=== PATIENT | female | born 1975 | race Caucasian/White ===

== ENCOUNTER 2020-05-07 08:37 | Outpatient (CLI) | payer BC, SELFPAY ==
--- NOTE | ~2020-05-07 | US_ITS ---
EXAMINATION: US right upper quadrant EXAM DATE: 05/07/2020 09:18 INDICATION: Abdomin pain . TECHNIQUE: Multiple grayscale and Doppler images of the abdomen right upper quadrant were obtained (b y a technologist who performed the scan) and subsequently reviewed. Comparison is made to prior exami nation from 03/07/2017. FINDINGS: The pancreatic head and body are normal in appearance. The pancreatic tail is not visualized. The l iver has normal echogenicity and contour. There are no focal liver lesions identified. There is no evidence of intrahepatic biliary duct dilation. Portal venous flow was seen in the hepatopedal, nor mal direction and has normal Doppler waveform. No right-sided hydronephrosis. Common bile duct measures 7 mm, which is mildly dilated (normal for this age 6 mm or less). The gallb ladder wall is normal in thickness, with expected amount of distention. No sonographic evidence of p ericholecystic fluid. There are numerous gallstones. Technologist performing exam reports patient d id not demonstrate sonographic Wadsworth's sign. Please note that this sign is less reliable in patient s who have received pain medication. IMPRESSION: 1. Numerous gallstones within an otherwise unremarkable gallbladder. 2. Mildly dilated common bile duct. No intrahepatic duct dilation. If patient has elevated bilirubin consider MRCP. Reviewed, dictated and finalized at location A. [employer]ING CARE MANAGER
[2020-05-07 08:54] LABS: Hematocrit 35.1 % (35.0-49.0); Hemoglobin 11.2 g/dL (12.0-15.0); Mean Corpuscular HGB Conc 31.9 g/dL (32.0-36.0); Mean Corpuscular Hemoglobin 25.4 pg (27.0-31.0); Mean Corpuscular Volume 79.6 fL (78.0-102.0); Mean Platelet Volume 10.8 fl (9.2-11.8); Platelet Count Result 156 K/mm3 (150-420); Red Blood Count 4.41 M/mm3 (4.20-5.40); White Blood Count 3.9 K/mm3 (4.8-10.8)
[2020-05-07 09:26] LABS: Total Cells Counted 100
[2020-05-07 09:27] LABS: Band Neutrophils Percent 0 % (0-6); Basophils Absolute Manual 0.07 K/mm3 (0-0.1); Basophils Percent Manual 2 % (0-1); Eosinophils Absolute Manual 0.15 K/mm3 (0.02-0.5); Eosinophils Percent Manual 4 % (1-6); Lymphocytes Absolute Manual 1.59 K/mm3 (1.1-4.5); Lymphocytes Percent Manual 41 % (18-44); Monocytes Absolute Manual 0.31 K/mm3 (0.1-0.90); Monocytes Percent Manual 8 % (3-9); Neutrophils Absolute Manual 1.75 K/mm3 (1.7-7.2); Neutrophils Percent Manual 45 % (46-73); Platelet Estimate Adequate (Adequate)
[2020-05-07 09:37] LABS: Alanine Aminotransferase 23 U/L (14-59); Albumin Level 3.7 g/dL (3.4-5.0); Alkaline Phosphatase 105 U/L (46-116); Amylase 51 U/L (25-115); Anion Gap 7 mmol/L (8-16); Aspartate Amino Transferase 24 U/L (15-37); Bilirubin,Total 0.5 mg/dL (0.00-1.00); Blood Urea Nitrogen 13 mg/dL (7-18); Carbon Dioxide 29 mmol/L (21-32); Chloride 104 mmol/L (98-108); Cholesterol 122 mg/dL (0-200); Estimated Glomerular Filt Rate > 60; Ferritin 103 ng/mL (8-252); Glucose 96 mg/dL (70-99); HDL Direct 51 mg/dL (40-60); LDL Cholesterol Calculated 57 mg/dL (<130); Lipase 111 U/L (73-393); Osmolality Calculated 290 mOsm/kg (285-295); Potassium 3.8 mmol/L (3.5-5.1); Sodium 140 mmol/L (136-145); Total Protein 6.6 g/dL (6.4-8.2); Triglycerides 72 mg/dL (0-150)
[2020-05-07 09:57] LABS: Thyroid Stimulating Hormone < 0.01 uIU/mL (0.36-3.74)
[2020-05-07 12:39] LABS: Free T3 7.86 pg/mL (2.18-3.98); Free T4 Free Thyroxine 2.25 ng/dL (0.76-1.46)
[2020-05-08 10:45] LABS: Add Urine Microscopic? YES; Appearance Urine Clear (Clear); Bilirubin Urine Negative (Negative); Blood Urine Negative (Negative); Color Urine Yellow (Yellow); Glucose Urine UA Negative (Negative); Ketones Urine Trace (Negative); Leukocyte Esterase Ur 2+ (Negative); Nitrate Urine Negative (Negative); Protein Urine Negative (Negative); Specific Grav Ur >= 1.030 (1.010-1.020); Urobilinogen Urine 0.2 mg/dL (0.2-1.0)
[2020-05-08 10:56] LABS: RBC Urine 0-2 /hpf (0-2)
[2020-05-08 10:57] LABS: Bacteria Urine 4+ /hpf; Calcium Oxalate Crystals Urine Many /hpf; Squamous Epithelial Cell Urine Few /hpf (Few)
[2020-05-09 14:58] LABS: Parathyroid Intact 25 pg/mL (14-64)
[2020-05-10 08:47] LABS: Methylmalonic Acid 202 nmol/L (87-318)
[2020-05-12 13:28] LABS: Vitamin D 25 Hydroxy 24 ng/mL (30-100)
[2020-05-13 11:24] LABS: Vitamin A 40 mcg/dL (38-98)
== END 2020-05-07 08:38 | disposition home or self-care (01) ==
LOC: CHSIMG 08:41
PROVIDERS: PCP Internal Medicine; Visit Provider Internal Medicine
DX: Z00.00 Encounter for general adult medical examination without abnormal findings (principal); R10.9 Unspecified abdominal pain; Z98.84 Bariatric surgery status; N28.9 Disorder of kidney and ureter, unspecified; R94.6 Abnormal results of thyroid function studies
CPT/HCPCS: 36415; 76705; 80053; 80061; 81001; 82150; 82306; 82728; 83690; 83921; 83970; 84439; 84443; 84481; 84590; 85025

== ENCOUNTER 2020-05-08 10:27 | Outpatient (CLI) | payer BC, SELFPAY ==
[2020-05-08 10:46] LABS: Total Protein Urine 24 Hr 164 mg/24hr (0-149); Total Protein Urine Random 11.3 mg/dL (0.0-11.9)
[2020-05-08 10:53] LABS: Total Volume 24 Hour Urine 1450 ml
== END 2020-05-08 10:28 | disposition home or self-care (01) ==
LOC: CHSLAB 10:29
PROVIDERS: PCP Internal Medicine; Visit Provider Internal Medicine
DX: R10.9 Unspecified abdominal pain (principal); Z98.84 Bariatric surgery status; N28.9 Disorder of kidney and ureter, unspecified
CPT/HCPCS: 81050; 84156

== ENCOUNTER 2020-05-18 09:31 | Outpatient (CLI) | payer BC, SELFPAY ==
--- NOTE | ~2020-05-18 | US_ITS ---
EXAMINATION: US thyroid DATE: 05/18/2020 09:51 INDICATION: Hyperthyroidism. TECHNIQUE: Multiple ultrasound images of the thyroid were obtained. COMPARISON: Ultrasound 03/03/2016 FINDINGS: The right thyroid lobe measures 4.3 x 1.7 x 1.5 cm. The left thyroid lobe measures 4.0 x 1.1 x 1.4 c m. The thyroid demonstrates diffuse chronic heterogeneous echogenicity and increased vascularity. No discrete nodule. IMPRESSION: 1. Chronically heterogeneous and hypervascular thyroid, consistent with Graves' disease. Reviewed, dictated and finalized at location A. ESS IMPROVEMENT SPECIALIST
== END 2020-05-18 09:32 | disposition home or self-care (01) ==
LOC: CHSIMG 09:32
PROVIDERS: PCP Internal Medicine; Visit Provider Internal Medicine
DX: E05.90 Thyrotoxicosis, unspecified without thyrotoxic crisis or storm (principal)
CPT/HCPCS: 76536

== ENCOUNTER → 2020-05-22 03:06 | Outpatient (CLI) | payer BC, SELFPAY ==
[2020-05-22 18:10] LABS: SARS-CoV-2 RNA PCR Negative
== END ==
PROVIDERS: PCP Internal Medicine; Visit Provider Surgery
DX: Z01.812 Encounter for preprocedural laboratory examination (principal); Z20.822 Contact with and (suspected) exposure to COVID-19
CPT/HCPCS: C9803; U0003; U0005

== ENCOUNTER 2020-05-22 08:06 | Outpatient (CLI) | payer BC, SELFPAY | END 2020-05-22 08:07 | disposition home or self-care (01) | LOC: ANHSURGERY 08:11 | PROVIDERS: PCP Internal Medicine; Visit Provider Surgery | DX: Z01.818 Encounter for other preprocedural examination (principal); K80.20 Calculus of gallbladder without cholecystitis without obstruction | CPT/HCPCS: 36415; 86850; 86900; 86901 ==

== ENCOUNTER 2020-05-25 01:34 | Day surgery (SDC) | payer BC, SELFPAY ==
[2020-05-19 10:01] VITALS: BMI 25.8
[2020-05-25] VITALS (8 sets, daily range): BP systolic 105–162; BP diastolic 68–93; PULSE 59–86; RESP 12–20; TEMP 36.8–37.2; O2SAT 92–100
--- NOTE | 2020-05-25 08:12 | WPDANESEPPF ---
Anes - Initial Pre Proc Eval Procedure: Operation Date: 05/25/20 13:00 Proposed Procedures p Laparoscopic Cholecystectomy - Cindy Cervantes MD <Anuj Worley MD - Last Filed: 05/28/20 08:56> Date/Time: 05/25/20 08:12 <Anuj Worley MD - Last Filed: 05/28/20 08:56> Surgeon: Cindy Cervantes MD <Anuj Worley MD - Last Filed: 05/28/20 08:56> Pre Op Diagnosis: Symptomatic Cholelithiasis <Anuj Worley MD - Last Filed: 05/28/20 08:56> Patient Data Age: 44 Gender: F Height: 1.7 m Weight: 74.84 kg <Anuj Worley MD - Last Filed: 05/28/20 08:56> Allergies Allergy/AdvReac Type Severity Reaction Status Date / Time Sulfa (Sulfonamide Allergy Unknown Rash Verified 05/25/20 11:17 Antibiotics) <Anuj Worley MD - Last Filed: 05/28/20 08:56> Home Medications Medication Instructions Recorded Confirmed Type hydrocodone-acetaminophen 1 tablet PO Q6H PRN #20 tablet 05/25/20 Rx <Anuj Worley MD - Last Filed: 05/28/20 08:56> Patient hx anesthesia problems: none <Tavo Luciano MD - Last Filed: 05/25/20 11:57> Family hx anesthesia problems: none <Tavo Luciano MD - Last Filed: 05/25/20 11:57> [facility] Past Medical History Medical History: Medical History (Updated 05/18/20 @ 13:27 by Nataliya Ventura) Anxiety GERD (gastroesophageal reflux disease) High cholesterol History of asthma NAT (obstructive sleep apnea) <Anuj Worley MD - Last Filed: 05/28/20 08:56> Surgical History Surgical History: Surgical History History of bariatric surgery 2017 History of hysterectomy History of right salpingo-oophorectomy <Anuj Worley MD - Last Filed: 05/28/20 08:56> Family History Family History: Family History Mother , age 37 Breast cancer Other Family history of cardiovascular disease <Anuj Worley MD - Last Filed: 05/28/20 08:56> Social History Social History: Social History Smoking status: Never smoker Tobacco type: cigarettes Alcohol intake: current Alcohol use details: SOCIALLY Substance use: never Living arrangements: with family Additional occupation/education comments: [employer] Spiritual care concerns: No <Anuj Worley MD - Last Filed: 05/28/20 08:56> Anes - Eval Final PreProcedure Day of Procedure 05/25/20 08:12 <Anuj Worley MD - Last Filed: 05/28/20 08:56> Patient weight: overweight <Anuj Worley MD - Last Filed: 05/28/20 08:56> Heart: regular rate and rhythm <Anuj Worley MD - Last Filed: 05/28/20 08:56> Lungs: clear to auscultation and normal air movement <Anuj Worley MD - Last Filed: 05/28/20 08:56> Airway: Mallampati scale class II <Anuj Worley MD - Last Filed: 05/28/20 08:56> Neurological: alert and oriented <Anuj Worley MD - Last Filed: 05/28/20 08:56> Last oral intake: >/= 8 hours <Anuj Worley MD - Last Filed: 05/28/20 08:56> ASA classification: II <Anuj Worley MD - Last Filed: 05/28/20 08:56> Emergent: no <Anuj Worley MD - Last Filed: 05/28/20 08:56> Anesthetic plan: proceed <Anuj Worley MD - Last Filed: 05/28/20 08:56> Anesthesia type and monitoring: general ETT <Anuj Worley MD - Last Filed: 05/28/20 08:56> Informed Consent: The patient's anesthetic plan and its attendant risks and benefits were discussed with the patient/family/POA. Questions were solicited and answers provided to the satisfaction of the patient/family/POA. <Anuj Worley MD - Last Filed: 05/28/20 08:56>
[2020-05-25] MEDS: ACETAMINOPHEN 500 MG TABLET 1000 MG PO (11:29)
[2020-05-25] MEDS: LACTATED RINGERS 1,000 ML 30 ML IV CONT ×2 (11:32→13:12)
[2020-05-25] MEDS: KETOROLAC 15 MG/ML VIAL (*BKC) IV PUSH (11:38)
--- NOTE | 2020-05-25 12:00 | WPDHPUPDATE1 ---
History and Physical Update Update Date/Time: 05/25/20 12:00 History and Physical has been reviewed, including an updated exam of the patient. There are NO changes in the patient's condition. Risks, benefits, and alternatives have been discussed and questions answered. Patient agrees to proceed with procedure.
[2020-05-25] MEDS: ceFAZolin 2 GM/D5W 50 ML 2 GM/50 ML BAG IVPB (12:16)
[2020-05-25] MEDS: BUPIVACAINE/EPINEPHRINE 0.5% 30 ML VIAL INFILTRATE (12:40)
[2020-05-25] MEDS: HYDROmorphone HCL INJ (*CRX) 1 MG/ML SYR 0.25 MG IV PUSH ×6 (13:20→13:52)
--- NOTE | 2020-05-25 13:34 | PM.PROC ---
Procedure Note - Detailed Date of procedure: 05/25/20 Pre-op diagnosis: Symptomatic Cholelithiasis Post-op diagnosis: same Procedure performed: laparoscopic cholecystectomy Description of procedure: The patient was taken to the operating room placed in the supine position. After adequate induction of general anesthesia, the patient was prepped and draped in normal sterile fashion. A time-out was then performed to verify the patient's identity as well as the procedure being performed. I then made a 5 mm incision in the infraumbilical region. Through this, a Veress needle was placed into the peritoneal cavity and CO2 gas was then insufflated. After adequate pneumoperitoneum was achieved, the Veress needle was removed and a 5 mm trocar was placed through this incision. I then placed the laparoscope through this trocar site and under direct visualization placed a further 12 mm subxiphoid port as well as 2 additional 5 mm ports in the right upper abdomen. The gallbladder was then identified and was noted to be moderately inflamed and full of gallstones. I was able to place a grasper at the dome of the gallbladder and this was retracted anterior and cephalad up over the liver. A 2nd retractor was then placed at the infundibulum and retracted laterally, this allowed visualization of the triangle of Calot. I then was able to visualize the cystic duct in its entirety from its proximal insertion into the gallbladder, to its distal junction with the common hepatic/common bile duct junction. At this point, I carefully skeletonized the proximal cystic duct with the [place] dissector. I then clipped and transected the proximal cystic duct. Next I visualized the cystic artery. Again the artery was skeletonized, clipped, and transected. I then used the Bovie cautery to take down the peritoneal attachments of the gallbladder off the liver bed. Once the gallbladder specimen was completely detached, an endo-pouch was placed through the 12 mm port site. I then placed the gallbladder specimen into the Endo pouch and removed the endo-pouch from the 12 mm port site. The specimen will now be sent to pathology for further review. I then copiously irrigated the right upper quadrant. Hemostasis was noted in the liver bed, the clips were noted to be in good position on both the cystic duct stump and the cystic artery stump. No other pathology was noted in the right upper quadrant. I then moved the laparoscope to the subxiphoid port. No iatrogenic injury or other pathology was noted in the lower abdomen. At this point, the abdomen was desufflated and all ports removed. The fascia of the 12 mm subxiphoid port was closed with a 0 Vicryl figure of 8 suture. All port sites were then closed with 4.O Monocryl subcuticular sutures. Dermabond was placed on each incision. The patient tolerated the procedure well, was extubated in the operating room postoperative and will be transferred to the recovery room in stable condition. Implants: none Anesthesia: GETA Surgeon: Cindy Cervantes MD Estimated blood loss (mL): 5 Drains: No Packing: No Pathology: yes Complications: No immediate complications Condition: stable Disposition: PACU Findings: chronic cholecystitis, cholelithiasis
[2020-05-25] MEDS: ONDANSETRON INJ 4 MG/2 ML VIAL IV PUSH (13:38)
[2020-05-25] MEDS: diphenhydrAMINE HCl INJ 50 MG/ML VIAL 25 MG IV PUSH (13:44)
== END 2020-05-25 15:24 | disposition home or self-care (01) ==
PROVIDERS: PCP Internal Medicine; Visit Provider Surgery
PROC: 0FT44ZZ Resection of Gallbladder, Percutaneous Endoscopic Approach (ICD-10-PCS; CPT 47562; principal; 2020-05-25 13:00)
DX: K80.10 Calculus of gallbladder with chronic cholecystitis without obstruction (principal); Z98.84 Bariatric surgery status
CPT/HCPCS: 47562; 88304; A9270; J0690; J1100; J1170; J1200; J1885; J2250; J2405; J2704; J2710; J3010; J7030; J7120